=== PATIENT | female | born 1990 | race Native Hawaiian/Other Pacific Islander ===

== ENCOUNTER → 2018-01-26 | Outpatient (REF) ==
[2018-01-27 10:53] LABS: RUBELLA IgG QUALITATIVE IMMUNE (IMMUNE)
[2018-01-28 14:57] LABS: QUANTIFERON GOLD TB Positive (Negative); TB Test (QFT) Antigen Minus Ni 6.74 IU/mL (.); TB Test (QFT) Mitogen 6.87 IU/mL (.); TB Test (QFT) Nil 0.06 IU/mL (.)
== END ==
LOC: M LAB 13:35
DX: Z00.00 Encounter for general adult medical examination without abnormal findings (principal)

== ENCOUNTER → 2018-01-29 | Outpatient (REF) | LOC: M RAD 14:58 | DX: Z00.00 Encounter for general adult medical examination without abnormal findings (principal) ==

== ENCOUNTER → 2018-02-19 | Outpatient (CLI) | payer OTHER ==
[2018-02-19 12:14] LABS: ALBUMIN 4.1 GM/DL (3.2-5.2); ALBUMIN/GLOBULIN RATIO 1.17 (1.00-1.93); ALKALINE PHOSPHATASE 62 U/L (45-117); ALT/SGPT 16 U/L (12-78); ANION GAP 5 MEQ/L (8-16); AST/SGOT 12 U/L (7-37); BILIRUBIN,TOTAL 0.6 MG/DL (0.2-1.0); BLOOD UREA NITROGEN 7 MG/DL (7-18); CALCIUM LEVEL 8.6 MG/DL (8.5-10.1); CARBON DIOXIDE LEVEL 29 MEQ/L (21-32); CHLORIDE LEVEL 106 MEQ/L (98-107); CHOLESTEROL LEVEL 168 MG/DL (<200); CHOLESTEROL RISK RATIO 3.906 (<5); CREATININE FOR GFR 0.54 MG/DL (0.55-1.30); GLOMERULAR FILTRATION RATE > 60.0 (>60); GLUCOSE, FASTING 87 MG/DL (70-100); HDL CHOLESTEROL 43 MG/DL (>40); NON-HDL-C 125 MG/DL; POTASSIUM SERUM 4.1 MEQ/L (3.5-5.1); SODIUM LEVEL 140 MEQ/L (136-145); TOTAL PROTEIN 7.6 GM/DL (6.4-8.2); TRIGLYCERIDES LEVEL 85 MG/DL (<150)
[2018-02-19 12:59] LABS: HIV 1&2 SCREEN CENTAUR NEGATIVE (NEGATIVE)
[2018-02-21 10:20] LABS: QUANTIFERON GOLD TB Positive (Negative); TB Test (QFT) Antigen 6.43 IU/mL (.); TB Test (QFT) Antigen Minus Ni 6.35 IU/mL (.); TB Test (QFT) Mitogen 6.87 IU/mL (.); TB Test (QFT) Nil 0.08 IU/mL (.)
== END ==
LOC: M LAB 10:15
DX: Z02.1 Encounter for pre-employment examination (principal); Z13.9 Encounter for screening, unspecified
CPT/HCPCS: 80053

== ENCOUNTER → 2018-03-18 | Outpatient (REF) | payer OTHER, MEDICAID ==
[2018-03-20 14:09] LABS: HPV HYBRID CAPTURE II Negative (Negative)
== END ==
LOC: M LAB REF 18:26
DX: Z12.4 Encounter for screening for malignant neoplasm of cervix (principal)
CPT/HCPCS: 88142

== ENCOUNTER → 2018-04-12 | Outpatient (REF) | payer OTHER, MEDICAID ==
[2018-04-12 13:03] LABS: AMORPHOUS SEDIMENT SMALL (NEGATIVE); APPEARANCE, URINE HAZY (CLEAR); BACTERIA, URINE AUTO NEGATIVE (NEGATIVE); BILIRUBIN, URINE AUTO NEGATIVE (NEGATIVE); BLOOD, URINE BLOOD 2+ (NEGATIVE); COLOR, URINE YELLOW (YELLOW); GLUCOSE, URINE (UA) AUTO NEGATIVE (NEGATIVE); KETONE, URINE AUTO NEGATIVE (NEGATIVE); LEUKOCYTE ESTERASE, URINE AUTO 2+ (NEGATIVE); MUCUS, URINE SMALL (NEGATIVE); NITRITE, URINE AUTO NEGATIVE (NEGATIVE); PROTEIN, URINE AUTO NEGATIVE (NEGATIVE); RBC, URINE AUTO 3 /HPF (0-3); SPECIFIC GRAVITY URINE AUTO 1.025 (1.002-1.035); SQUAMOUS EPITHELIAL CELL UR AU 5 /HPF (0-6); UROBILINOGEN, URINE AUTO 0.2 mg/dL (0.0-2.0); WBC, URINE AUTO 3 /HPF (0-3)
[2018-04-12 18:53] LABS: ALBUMIN 4.3 GM/DL (3.2-5.2); ALBUMIN/GLOBULIN RATIO 1.08 (1.00-1.93); ALKALINE PHOSPHATASE 70 U/L (45-117); ALT/SGPT 17 U/L (12-78); ANION GAP 4 MEQ/L (8-16); AST/SGOT 9 U/L (7-37); BILIRUBIN,TOTAL 0.4 MG/DL (0.2-1.0); BLOOD UREA NITROGEN 14 MG/DL (7-18); CALCIUM LEVEL 8.9 MG/DL (8.5-10.1); CARBON DIOXIDE LEVEL 30 MEQ/L (21-32); CHLORIDE LEVEL 107 MEQ/L (98-107); CREATININE FOR GFR 0.63 MG/DL (0.55-1.30); GLOMERULAR FILTRATION RATE > 60.0 (>60); GLUCOSE, FASTING 92 MG/DL (70-100); POTASSIUM SERUM 4.1 MEQ/L (3.5-5.1); SODIUM LEVEL 141 MEQ/L (136-145); TOTAL PROTEIN 8.3 GM/DL (6.4-8.2)
== END ==
LOC: M LAB REF 12:17
DX: R10.829 Rebound abdominal tenderness, unspecified site (principal)

== ENCOUNTER → 2018-05-13 | Outpatient (REF) | payer OTHER, MEDICAID ==
[2018-05-13 12:55] LABS: ALBUMIN 3.9 GM/DL (3.2-5.2); ALBUMIN/GLOBULIN RATIO 1.15 (1.00-1.93); ALKALINE PHOSPHATASE 56 U/L (45-117); ALT/SGPT 18 U/L (12-78); ANION GAP 6 MEQ/L (8-16); AST/SGOT 10 U/L (7-37); BILIRUBIN,TOTAL 0.5 MG/DL (0.2-1.0); BLOOD UREA NITROGEN 10 MG/DL (7-18); CALCIUM LEVEL 8.4 MG/DL (8.5-10.1); CARBON DIOXIDE LEVEL 26 MEQ/L (21-32); CHLORIDE LEVEL 109 MEQ/L (98-107); GLOMERULAR FILTRATION RATE > 60.0 (>60); GLUCOSE, FASTING 83 MG/DL (70-100); POTASSIUM SERUM 3.9 MEQ/L (3.5-5.1); SODIUM LEVEL 141 MEQ/L (136-145); TOTAL PROTEIN 7.3 GM/DL (6.4-8.2)
== END ==
LOC: M LAB REF 11:38
DX: A15.9 Respiratory tuberculosis unspecified (principal)

== ENCOUNTER → 2020-02-15 | Outpatient (REF) | payer OTHER ==
[~2020-02-15] MED LIST: CYCL5TAB PO; ISON300T18 PO; KETO10TAB PO; VITA50TA43 PO
[2020-02-15 17:51] LABS: HEMATOCRIT 41.7 % (36.0-47.0); HEMOGLOBIN 13.6 g/dl (12.0-15.5); MEAN CORPUSCULAR HEMOGLOBIN 31.8 pg (27.0-33.0); MEAN CORPUSCULAR HGB CONC 32.6 g/dl (32.0-36.5); MEAN CORPUSCULAR VOLUME 97.4 fl (80.0-96.0); PLATELET COUNT, AUTOMATED 318 10^3/uL (150-450); RED BLOOD COUNT 4.28 10^6/uL (4.00-5.40)
[2020-02-15 20:09] LABS: CHLAMYDIA DNA AMPLIFICATION NEGATIVE (NEGATIVE); GC DNA AMPLIFICATION NEGATIVE (NEGATIVE)
[2020-02-16 14:44] LABS: HIV 1&2 SCREEN CENTAUR NEGATIVE (NEGATIVE); RUBELLA IgG QUALITATIVE IMMUNE (IMMUNE)
[2020-02-17 10:33] LABS: HEPATITIS B SURFACE ANTIGEN NEGATIVE (NEGATIVE); HEPATITIS C VIRUS ABY INDEX 0.1 INDEX (<0.8)
== END ==
LOC: M PLALAB 14:52
PROVIDERS: ATTEND Advanced Practice Midwife
DX: Z34.81 Encounter for supervision of other normal pregnancy, first trimester (principal)

== ENCOUNTER → 2020-02-27 | Outpatient (CLI) | payer OTHER | LOC: M PLALAB 13:07 | PROVIDERS: ATTEND Advanced Practice Midwife | DX: Z00.00 Encounter for general adult medical examination without abnormal findings (principal) ==

== ENCOUNTER 2020-04-05 18:04 | Emergency (ER) | payer MEDICAID, OTHER ==
[~2020-04-05] VITALS: Ht 157.5 cm; Wt 61.4 kg
[2020-04-05] MEDS ORDERED: ACET-683 PO (18:13)
[2020-04-05] MEDS ORDERED: PREN29TA4 PO (18:13)
[2020-04-05] MEDS ORDERED: diphenhydrAMINE 50MG/ML VIAL (J1200) IV STA (18:38)
[2020-04-05] MEDS ORDERED: NS 1,000 ML IV ONE (18:45)
[2020-04-05] MEDS ORDERED: ACETAMINOPHEN TAB 650MG DOSE (2X325MG) PO ONE (18:45)
[2020-04-05] MEDS ORDERED: METOCLOPRAMIDE INJ 10MG/2ML VIAL (J2765 PER 1) IV ONE (18:45)
[2020-04-05 19:09] LABS: BASO % 0.3 % (0.0-1.0); EOS # 0.3 10^3/uL (0.0-0.5); EOS % 2.7 % (0.0-3.0); HEMATOCRIT 37.1 % (36.0-47.0); HEMOGLOBIN 12.3 g/dl (12.0-15.5); LYMPH # 2.7 10^3/uL (1.5-5.0); LYMPH % 29.5 % (24.0-44.0); MEAN CORPUSCULAR HEMOGLOBIN 31.5 pg (27.0-33.0); MEAN CORPUSCULAR HGB CONC 33.2 g/dl (32.0-36.5); MEAN CORPUSCULAR VOLUME 94.9 fl (80.0-96.0); MONO # 0.5 10^3/uL (0.0-0.8); MONO % 5.2 % (0.0-5.0); NEUTROPHILS # 5.7 10^3/uL (1.5-8.5); NEUTROPHILS % 61.9 % (36.0-66.0); PLATELET COUNT, AUTOMATED 286 10^3/uL (150-450); RED BLOOD COUNT 3.91 10^6/uL (4.00-5.40); WHITE BLOOD COUNT 9.2 10^3/uL (4.0-10.0)
[2020-04-05 19:27] VITALS: BP 121/59
== END 2020-04-05 19:57 | disposition home or self-care (01) ==
LOC: M ED 18:04
DX: O99.89 Other specified diseases and conditions complicating pregnancy, childbirth and the puerperium (principal); R51 Headache; O99.512 Diseases of the respiratory system complicating pregnancy, second trimester; J45.909 Unspecified asthma, uncomplicated; Z86.15 Personal history of latent tuberculosis infection; Z3A.16 16 weeks gestation of pregnancy
CPT/HCPCS: 80047; 81001; 85025; 96361; 96374; 96375; 99284; J1200; J2765

== ENCOUNTER → 2020-04-27 | Outpatient (CLI) | payer MEDICAID, OTHER ==
[~2020-04-27] MED LIST changes: +ACET-683 PO; +PREN29TA4 PO
--- NOTE | 2020-04-28 11:04 | REP ---
OBSTETRIC SONOGRAPHY: HISTORY: Supervision of for anatomy. FINDINGS: Scanning through the gravid uterus demonstrates a living single intrauterine gestation in a breech lie. motion is observed and heart rate is recorded at 143 beats per minute. A posterior grade 0 placenta is seen without evidence of previa. Amniotic fluid is subjectively normal. Closed cervical length measures 4.6 cm, viewed transabdominally. No extrauterine abnormalities observed. Posterior placenta inferior tip is 4.2 cm from the internal cervical os. Four-chamber heart view is less than optimally seen today due to position. The following additional anatomic structures are identified and felt to be unremarkable: cranium, choroid plexus, cavum, cerebellum and posterior fossa, face and profile, left and right ventricular cardiac outflow tracts views, diaphragm, left-sided stomach, abdominal wall cord insertion, three-vessel cord, kidneys and bladder, spine, upper and lower extremities. BIOMETRY CHART: BPD 4.4 cm = 19 weeks 1 day Head circumference 16.1 cm = 18 weeks 6 days Abdominal circumference 13.7 cm = 19 weeks 1 day Femur length 2.9 cm = 18 weeks 6 days Humeral length 2.8 cm = 19 weeks 0 days Cerebellar diameter 1.8 cm = 18 weeks 1 day HC/AC ratio normal 1.17 Cephalic index normal 0.75 Estimated weight 269 grams, 0 pounds 9 ounces, 52nd percentile for 18 weeks 6 days. IMPRESSION: Viable single intrauterine gestation at 18 weeks 6 days by today's composite sonographic criteria. NAJMA by today's criteria, September 22, 2020. anatomic survey is felt to be complete except for visualization of four-chamber heart. Breech lie.
== END ==
LOC: M WHC 13:50
PROVIDERS: ATTEND Advanced Practice Midwife

== ENCOUNTER → 2020-06-07 | Outpatient (CLI) | payer OTHER ==
--- NOTE | 2020-06-07 16:20 | REP ---
REASON: Followup anatomy. Prior examination 04/27/2020 failed to optimally visualize a four-chamber heart. Multiple ultrasonographic images of the gravid uterus show a single living intrauterine gestation in the transverse , head to the maternal left position. Doppler interrogation of the heart shows a heart rate of 152 beats per minute. The placenta is posterior and not low lying. The subjective amniotic fluid volume is within normal limits. The cervix measures 3.2 cm in length and is closed. BPD 6.2 cm = 25 weeks 3 days HC 22.5 cm = 24 weeks 4 days AC 20.5 cm = 25 weeks 1 day FL 4.5 cm = 24 weeks 5 days The estimated weight is 750 grams which is at the 42nd percentile for a 87-wpuk-3-day gestational age. four chamber heart was well seen today and is within normal limits. IMPRESSION: Single living intrauterine gestation as described above with an estimated gestational age of 24 weeks 4 days via composite criteria and an estimated date of delivery of 09/23/2020 by today's exam.
== END ==
LOC: M WHC 12:47
PROVIDERS: ATTEND Advanced Practice Midwife
DX: Z34.82 Encounter for supervision of other normal pregnancy, second trimester (principal); Z3A.25 25 weeks gestation of pregnancy

== ENCOUNTER → 2020-06-19 | Outpatient (REF) | payer OTHER ==
[2020-06-19 15:28] LABS: HEMATOCRIT 33.6 % (36.0-47.0); MEAN CORPUSCULAR HEMOGLOBIN 32.4 pg (27.0-33.0); MEAN CORPUSCULAR HGB CONC 32.7 g/dl (32.0-36.5); MEAN CORPUSCULAR VOLUME 98.8 fl (80.0-96.0); PLATELET COUNT, AUTOMATED 272 10^3/uL (150-450)
== END ==
LOC: M PLALAB 15:05
PROVIDERS: ATTEND Advanced Practice Midwife
DX: Z34.02 Encounter for supervision of normal first pregnancy, second trimester (principal)

== ENCOUNTER 2020-08-26 02:04 | Outpatient (CLI) | payer OTHER ==
[~2020-08-26] VITALS: Ht 157.5 cm; Wt 69.0 kg
[2020-08-26 02:25] VITALS: BP 122/58
[2020-08-26 06:50] VITALS: BP 114/72
--- NOTE | 2020-08-26 07:12 | IPNPDOC ---
Text Note Date of Service The patient was seen on 08/26/20. NOTE Triage Visit Nicole is a 29yo with SIUP at approx 36wk who presents with regular ctx that are mildly uncomfortable. No VB, no LOF. Good movement. Vitals wnl, afebrile General: WDWN, resting comfortably in bed (slept in between checks) Abdomen: soft, gravid, NTTP Extremities: no edema BLE Cat I FHRT with +accels, -decels, mod bhavesh [place]: uterine irritability initially, but ctx q3-5min over time that patient slept through SCE per RN on presentation: ft/thick/high SCE by me approx 3hr later: 1-2/50/-2, soft GBS swab obtained by me TAUS: galeano IUP cephalic, posterior placenta, +FCA, +FM, MVP 4cm A/P: Nicole is a 29yo with SIUP at approx 36wk with no evidence of active labor, but definitely some ripening of cervix on 2nd exam. Cephalic. Vitals wnl, benign exam. Reassuring status. -Safe for discharge home -Keep routine OB appt on Thursday, but will not need cephalic confirmation or GBS swab at that visit since done today -discussed return precautions at length Sara Peguero MD VS,Robyn, I+O VS, Robyn, I+O Vital Signs Date Time Temp Pulse Resp B/P (MAP) Pulse Ox O2 Delivery O2 Flow Rate FiO2 08/26/20 06:50 68 114/72 (86) 08/26/20 02:25 97.6 Sara Peguero MD Aug 26, 2020 07:12
== END 2020-08-26 07:30 | disposition home or self-care (01) ==
LOC: M LDO 02:04
PROVIDERS: ATTEND Obstetrics & Gynecology
DX: O47.03 False labor before 37 completed weeks of gestation, third trimester (principal); Z3A.36 36 weeks gestation of pregnancy

== ENCOUNTER 2020-09-01 04:20 | Outpatient (CLI) | payer OTHER ==
[~2020-09-01] VITALS: Ht 157.5 cm; Wt 69.6 kg
== END 2020-09-01 05:10 | disposition home or self-care (01) ==
LOC: M LDO 04:20
PROVIDERS: ATTEND Advanced Practice Midwife
DX: O26.893 Other specified pregnancy related conditions, third trimester (principal); Z3A.37 37 weeks gestation of pregnancy

== ENCOUNTER 2020-09-05 09:47 | Inpatient (IN) | payer OTHER ==
[2020-09-05] VITALS (12 sets, daily range): BP systolic 99–129; BP diastolic 51–78
[~2020-09-05] VITALS: Ht 157.5 cm; Wt 69.4 kg
[2020-09-05] MEDS ORDERED: LACTATED RINGER'S 1000 ML IV STA (10:42)
[2020-09-05] MEDS ORDERED: LR 1,000 ML IV SCH (10:42)
[2020-09-05] MEDS ORDERED: OXYTOCIN DRIP 30 UNITS in IV 1 EA IV SCH ×2 (10:45→13:52)
[2020-09-05 12:43] LABS: HEMATOCRIT 35.1 % (36.0-47.0); HEMOGLOBIN 11.3 g/dl (12.0-15.5); MEAN CORPUSCULAR HEMOGLOBIN 29.2 pg (27.0-33.0); MEAN CORPUSCULAR HGB CONC 32.2 g/dl (32.0-36.5); MEAN CORPUSCULAR VOLUME 90.7 fl (80.0-96.0); PLATELET COUNT, AUTOMATED 255 10^3/uL (150-450); RED BLOOD COUNT 3.87 10^6/uL (4.00-5.40); WHITE BLOOD COUNT 10.4 10^3/uL (4.0-10.0)
[2020-09-05] MEDS ORDERED: DIBUCAINE 1% OINTMENT 30GM TOP PRN (14:00)
[2020-09-05] MEDS ORDERED: ACETAMINOPHEN TAB 650MG DOSE (2X325MG) PO PRN (14:00)
[2020-09-05] MEDS ORDERED: METHYLERGONOVINE MALEATE 0.2 MG TAB PO PRN (14:00)
[2020-09-05] MEDS ORDERED: RHOGAM 300 MCG (1500 IU) INJ (J2790) IM SCH (14:00)
[2020-09-05] MEDS ORDERED: LIDOCAINE 1% MDV 20ML VIAL INFIL ONE (14:00)
[2020-09-05] MEDS ORDERED: MEASLES,MUMPS,RUBELLA VACCINE INJ (MMR-II) (90707) SC SCH (14:00)
[2020-09-05] MEDS ORDERED: IBUPROFEN 600MG TAB PO PRN (14:00)
[2020-09-05] MEDS ORDERED: DOCUSATE SODIUM 100 MG CAP PO PRN (14:00)
[2020-09-05] MEDS: ACETAMINOPHEN 500 MG TAB PO PRN (15:38)
[2020-09-06] MEDS: IBUPROFEN 800 MG TAB PO PRN ×3 (00:30→23:50)
[2020-09-06 05:21] VITALS: BP 105/55
[2020-09-06] MEDS: PRENATAL VITAMINS CHEWABLE TABLET PO SCH (08:49)
[2020-09-06] MEDS ORDERED: INFLUENZA QUADRIVALENT PF VACCINE 0.5ML SYRINGE IM ONE (09:00)
[2020-09-06 17:40] VITALS: BP 105/58
[2020-09-06] MEDS: ACETAMINOPHEN 500 MG TAB PO PRN (21:34)
[2020-09-07 05:38] VITALS: BP 107/53
[2020-09-07] MEDS: PRENATAL VITAMINS CHEWABLE TABLET PO SCH (08:00)
[2020-09-07] MEDS ORDERED: INFLUENZA QUADRIVALENT PF VACCINE 0.5ML SYRINGE IM ONE (09:00)
--- NOTE | 2020-09-07 09:47 | IPNPDOC ---
Progress Note Date of Service: Sep 07, 2020 Progress Note SUBJECT: Status post . She has been ambulating, voiding spontaneously without issue and tolerating regular diet. Lochia decreasing/minimal. Patient is ambulating well. OBJECTIVE: VITAL SIGNS: Within normal limits, afebrile. Alert and oriented times three. Abdomen: Fundus firm at U-2. Soft, NTTP. ASSESSMENT: Status post uncomplicated spontaneous vaginal delivery. Vitals within normal limits, afebrile, hemodynamically stable with no evidence of infection. PLAN: Discharge to home today. Tylenol and Motrin for pain. Routine instructions/precautions reviewed. Routine PP visit in 6 weeks in clinic. VS, I&O, 24H, Fishbone Vital Signs/I&O Vital Signs Date Time Temp Pulse Resp B/P (MAP) Pulse Ox O2 Delivery O2 Flow Rate FiO2 09/07/20 05:38 97.4 88 16 107/53 (71) 09/06/20 05:21 99 I&O- Last 24 Hours up to 6 AM 09/07/20 06:00 Intake Total 240 ml Balance 240 ml THANH BOOGIE DO Sep 07, 2020 09:47
== END 2020-09-07 11:40 | disposition home or self-care (01) | DRG 560 ==
LOC: M LDO 09:47 → M LDI 10:32 → M OBS 15:37
PROVIDERS: ADMIT Advanced Practice Midwife; ATTEND Advanced Practice Midwife
PROC: 10E0XZZ Delivery of Products of Conception, External Approach (ICD-10-PCS; principal; 2020-09-05)
PROC: 0HQ9XZZ Repair Perineum Skin, External Approach (ICD-10-PCS; 2020-09-05)
DX: O42.12 Full-term premature rupture of membranes, onset of labor more than 24 hours following rupture (principal); Z3A.37 37 weeks gestation of pregnancy; O70.0 First degree perineal laceration during delivery; Z37.0 Single live birth

== ENCOUNTER → 2020-12-26 | Outpatient (REF) | payer OTHER | LOC: M SFHCWAGY 12-25 17:21 | PROVIDERS: ATTEND Advanced Practice Midwife | DX: Z12.4 Encounter for screening for malignant neoplasm of cervix (principal); N88.8 Other specified noninflammatory disorders of cervix uteri ==

== ENCOUNTER 2022-10-16 20:59 | Emergency (ER) | payer OTHER ==
[~2022-10-16] VITALS: Ht 157.5 cm; Wt 56.7 kg
[2022-10-16 20:59] VITALS: BP 108/66
[2022-10-16] MEDS ORDERED: GNPLIQ67 PO (21:08)
[2022-10-17] MEDS ORDERED: BENZONATATE 100MG CAPSULE PO ONE (02:00)
[2022-10-17] MEDS ORDERED: predniSONE 20 MG TAB PO ONE (02:00)
[2022-10-17] MEDS ORDERED: PRED20TA PO (02:05)
[2022-10-17] MEDS ORDERED: BENZ200C70 PO (02:05)
[2022-10-17] MEDS ORDERED: MUCI1TAB16 PO (02:05)
[2022-10-17] MEDS ORDERED: guaiFENesin ER 600 MG TAB PO SCH (09:00)
== END 2022-10-17 02:34 | disposition home or self-care (01) ==
LOC: M ED 20:59
DX: B97.4 Respiratory syncytial virus as the cause of diseases classified elsewhere (principal); R53.1 Weakness; R05.9 Cough, unspecified
CPT/HCPCS: 87486; 87581; 87633; 87798; 99282; J7512

== ENCOUNTER 2023-07-16 16:05 | Emergency (ER) | payer OTHER ==
[~2023-07-16] VITALS: Ht 157.5 cm; Wt 55.2 kg
[~2023-07-16 16:05] MED LIST changes: +BENZ200C70 PO; +GNPLIQ67 PO; +MUCI1TAB16 PO; +PRED20TA PO
[2023-07-16 16:06] VITALS: TEMP 97.5
[2023-07-16 18:19] LABS: BASO # 0.1 10^3/uL (0.0-0.2); BASO % 0.7 % (0.0-1.0); EOS # 0.2 10^3/uL (0.0-0.5); EOS % 2.4 % (0.0-3.0); HEMATOCRIT 41.2 % (36.0-47.0); HEMOGLOBIN 13.5 g/dl (12.0-15.5); LYMPH # 2.7 10^3/uL (1.5-5.0); LYMPH % 40.3 % (24.0-44.0); MEAN CORPUSCULAR HEMOGLOBIN 31.3 pg (27.0-33.0); MEAN CORPUSCULAR HGB CONC 32.8 g/dl (32.0-36.5); MEAN CORPUSCULAR VOLUME 95.6 fl (80.0-96.0); MONO # 0.7 10^3/uL (0.0-0.8); MONO % 9.9 % (2.0-8.0); NEUTROPHILS # 3.1 10^3/uL (1.5-8.5); NEUTROPHILS % 46.6 % (36.0-66.0); PLATELET COUNT, AUTOMATED 236 10^3/uL (150-450); RED BLOOD COUNT 4.31 10^6/uL (4.00-5.40); WHITE BLOOD COUNT 6.8 10^3/uL (4.0-10.0)
[2023-07-16 18:48] LABS: LIPASE 37 U/L (12-53)
[2023-07-16 18:50] LABS: ALBUMIN 3.8 G/DL (3.2-5.2); ALKALINE PHOSPHATASE 72 U/L (46-116); ALT/SGPT 16 U/L (7.0-40); AST/SGOT 13 U/L (<34); BILIRUBIN,DIRECT 0.1 MG/DL (<0.4); BILIRUBIN,TOTAL 0.3 MG/DL (0.3-1.2); BLOOD UREA NITROGEN 8 MG/DL (9-23); CALCIUM LEVEL 8.7 MG/DL (8.5-10.1); CARBON DIOXIDE LEVEL 25 MMOL/L (20-31); CHLORIDE LEVEL 106 MMOL/L (98-107); CREATININE FOR GFR 0.51 MG/DL (0.55-1.30); GLOMERULAR FILTRATION RATE > 60.0 (>60); GLUCOSE, FASTING 83 MG/DL (60-100); POTASSIUM SERUM 3.9 MMOL/L (3.5-5.1); SODIUM LEVEL 138 MMOL/L (136-145); TOTAL PROTEIN 7.1 G/DL (5.7-8.2)
[2023-07-16 18:57] LABS: HCG, SERUM QUALITATIVE NEGATIVE (NEGATIVE)
[2023-07-16] MEDS ORDERED: NS 1,000 ML IV ONE (19:25)
[2023-07-16] MEDS ORDERED: ISOVUE-370 76% 100ML VIAL As Ordered ONE (19:27)
[2023-07-16 20:42] VITALS: BP 114/58; O2SAT 100
== END 2023-07-16 20:51 | disposition home or self-care (01) ==
LOC: M ED 16:05
DX: R10.9 Unspecified abdominal pain (principal); J45.909 Unspecified asthma, uncomplicated
CPT/HCPCS: 36415; 74177; 80048; 80076; 81001; 83690; 84703; 85025; 87086; 99284; Q9967

== ENCOUNTER → 2024-08-11 | Outpatient (REF) | payer OTHER ==
[~2024-08-11] MED LIST changes: +CEFD1CAP9 PO
[2024-08-11 15:20] LABS: Trichomonas vaginalis (AMP) NOT DETECTED (NEGATIVE)
[2024-08-11 15:43] LABS: GC DNA AMPLIFICATION NEGATIVE (NEGATIVE)
[2024-08-11 17:28] LABS: ALBUMIN 4.1 G/DL (3.2-5.2); ALKALINE PHOSPHATASE 76 U/L (46-116); ALT/SGPT 12 U/L (7.0-40); AST/SGOT 10 U/L (<34); BILIRUBIN,TOTAL 0.5 MG/DL (0.3-1.2); BLOOD UREA NITROGEN 11 MG/DL (9-23); CALCIUM LEVEL 8.9 MG/DL (8.5-10.1); CARBON DIOXIDE LEVEL 28 MMOL/L (20-31); CHLORIDE LEVEL 105 MMOL/L (98-107); CHOLESTEROL LEVEL 161 MG/DL (<200); CHOLESTEROL RISK RATIO 3.24 (<5); CREATININE FOR GFR 0.53 MG/DL (0.55-1.30); GLOMERULAR FILTRATION RATE > 60.0 (>60); GLUCOSE, FASTING 82 MG/DL (60-100); HDL CHOLESTEROL 49.6 MG/DL (>40); LDL CHOLESTEROL 102.4 MG/DL (<100); NON-HDL-C 111.4 MG/DL; POTASSIUM SERUM 4.3 MMOL/L (3.5-5.1); SODIUM LEVEL 137 MMOL/L (136-145); TOTAL PROTEIN 7.4 G/DL (5.7-8.2); TRIGLYCERIDES LEVEL 45 MG/DL (<150)
[2024-08-11 17:30] LABS: THYROID STIMULATING HORMONE 1.234 uIU/ML (0.55-4.78)
[2024-08-11 17:31] LABS: TOTAL 25(OH) VITAMIN D 12.6 NG/ML (20.0-100.0)
[2024-08-11 18:29] LABS: HEMOGLOBIN A1c 4.9 % (4.0-6.0)
== END ==
LOC: M LAB REF 12:20
PROVIDERS: ATTEND Physician Assistant
DX: Z11.9 Encounter for screening for infectious and parasitic diseases, unspecified (principal); E55.9 Vitamin D deficiency, unspecified; R10.9 Unspecified abdominal pain

== ENCOUNTER → 2024-08-15 | Outpatient (CLI) | payer OTHER | LOC: M RAD 15:32 | PROVIDERS: ATTEND Physician Assistant | DX: M54.50 Low back pain, unspecified (principal) ==

== ENCOUNTER 2024-08-16 16:19 | Emergency (ER) | payer OTHER ==
[~2024-08-16] VITALS: Ht 157.5 cm; Wt 54.1 kg
[~2024-08-16 16:19] MED LIST changes: -CEFD1CAP9 PO
[2024-08-16 19:18] LABS: BASO % 0.4 % (0.0-1.0); EOS # 0.3 10^3/uL (0.0-0.5); EOS % 2.4 % (0.0-3.0); HEMATOCRIT 42.2 % (36.0-47.0); HEMOGLOBIN 13.8 g/dl (12.0-15.5); LYMPH # 2.3 10^3/uL (1.5-5.0); LYMPH % 21.3 % (24.0-44.0); MEAN CORPUSCULAR HEMOGLOBIN 32.2 pg (27.0-33.0); MEAN CORPUSCULAR HGB CONC 32.7 g/dl (32.0-36.5); MEAN CORPUSCULAR VOLUME 98.4 fl (80.0-96.0); MONO # 0.8 10^3/uL (0.0-0.8); MONO % 7.2 % (2.0-8.0); NEUTROPHILS # 7.4 10^3/uL (1.5-8.5); NEUTROPHILS % 68.4 % (36.0-66.0); PLATELET COUNT, AUTOMATED 289 10^3/uL (150-450); RED BLOOD COUNT 4.29 10^6/uL (4.00-5.40); WHITE BLOOD COUNT 10.8 10^3/uL (4.0-10.0)
[2024-08-16 19:38] LABS: CPK CREATINE PHOSPHOKINASE 36 U/L (34-145)
[2024-08-16 19:39] LABS: ALBUMIN 3.6 G/DL (3.2-5.2); ALKALINE PHOSPHATASE 80 U/L (46-116); ALT/SGPT 11 U/L (7.0-40); AST/SGOT < 8 U/L (<34); BILIRUBIN,TOTAL 0.4 MG/DL (0.3-1.2); BLOOD UREA NITROGEN 11 MG/DL (9-23); CALCIUM LEVEL 8.4 MG/DL (8.5-10.1); CARBON DIOXIDE LEVEL 29 MMOL/L (20-31); CHLORIDE LEVEL 105 MMOL/L (98-107); CREATININE FOR GFR 0.51 MG/DL (0.55-1.30); GLOMERULAR FILTRATION RATE > 60.0 (>60); GLUCOSE, FASTING 102 MG/DL (60-100); MAGNESIUM LEVEL 2.1 MG/DL (1.8-2.4); POTASSIUM SERUM 3.6 MMOL/L (3.5-5.1); SODIUM LEVEL 137 MMOL/L (136-145); TOTAL PROTEIN 7.3 G/DL (5.7-8.2)
[2024-08-16 19:41] LABS: FREE T4 1.14 NG/DL (0.89-1.76); THYROID STIMULATING HORMONE 1.066 uIU/ML (0.55-4.78)
[2024-08-16 19:55] LABS: HCG, SERUM QUALITATIVE NEGATIVE (NEGATIVE)
[2024-08-16] MEDS ORDERED: CEFD1CAP9 PO (21:05)
[2024-08-16 21:10] VITALS: BP 108/56; TEMP 97.5; O2SAT 100
[2024-08-16] MEDS: CEFDINIR 300 MG CAP (OMNICEF) PO ONE (21:13)
== END 2024-08-16 21:18 | disposition home or self-care (01) ==
LOC: M ED 16:19
DX: N39.0 Urinary tract infection, site not specified (principal); R53.81 Other malaise; J45.909 Unspecified asthma, uncomplicated; Z79.2 Long term (current) use of antibiotics

== ENCOUNTER → 2025-02-08 | Outpatient (REF) | payer OTHER ==
[~2025-02-08] MED LIST changes: +CEFD1CAP9 PO; -CYCL5TAB PO; +CYCL5TAB4 PO; +ISON1TAB5 PO; -ISON300T18 PO
== END ==
LOC: M LAB REF 12:29
PROVIDERS: ATTEND Physician Assistant
DX: J01.90 Acute sinusitis, unspecified (principal)

== ENCOUNTER → 2025-08-24 | Outpatient (REF) | payer OTHER ==
[2025-08-24 16:21] LABS: TOTAL 25(OH) VITAMIN D 16.8 NG/ML (20.0-100.0)
[2025-08-24 17:06] LABS: ALT/SGPT 14 U/L (7.0-40); AST/SGOT 12 U/L (<34); CALCIUM LEVEL 9.0 MG/DL (8.5-10.1); CARBON DIOXIDE LEVEL 29 MMOL/L (20-31); CHLORIDE LEVEL 102 MMOL/L (98-107); CREATININE FOR GFR 0.58 MG/DL (0.55-1.30); GLOMERULAR FILTRATION RATE > 90.0 (>60); POTASSIUM SERUM 4.0 MMOL/L (3.5-5.1); SODIUM LEVEL 139 MMOL/L (136-145)
== END ==
LOC: M LAB REF 14:55
PROVIDERS: ATTEND Physician Assistant
DX: E55.9 Vitamin D deficiency, unspecified (principal); R42 Dizziness and giddiness

== ENCOUNTER → 2025-11-15 | Outpatient (REF) | payer MEDICAID, OTHER ==
[2025-11-17 13:56] LABS: HPV APTIMA Not Detected (Not Detected)
== END ==
LOC: M LAB REF 12:20
PROVIDERS: ATTEND Physician Assistant
DX: Z12.4 Encounter for screening for malignant neoplasm of cervix (principal)